=== PATIENT | female | born 1985 | race Caucasian/White ===

== ENCOUNTER → 2018-10-20 | Day surgery (SDC) | payer BC ==
[2018-10-18 10:34] LABS: BASOPHILS % 0.5 % (0.0-1.0); EOSINOPHILS % 0.7 % (0.0-6.0); HEMATOCRIT 37.4 % (34.2-44.1); HEMOGLOBIN 12.6 g/dL (12.0-16.0); LYMPHOCYTES # (AUTO) 1.3 (1.0-3.2); LYMPHOCYTES % 31.2 % (18.0-39.1); MEAN CORPUSCULAR HEMOGLOBIN 29.5 pg (28-32); MEAN CORPUSCULAR HGB CONC 33.7 g/dL (31-35); MEAN CORPUSCULAR VOLUME 87.6 fL (81-99); MONOCYTES # (AUTO) 0.2 (0.2-0.8); MONOCYTES % 4.7 % (4.4-11.3); NEUTROPHILS # (AUTO) 2.5 (2.1-6.9); NEUTROPHILS % 62.7 % (38.7-80.0); PLATELET COUNT 247 x10e3/uL (140-360); RED BLOOD COUNT 4.27 x10e6/uL (3.6-5.1); RED CELL DISTRIBUTION WIDTH 13.2 % (11.7-14.4)
[~2018-10-20] MED LIST: ACETAMINOPHEN 1000 MG/100 ML 100 ML IV ONE; CEFAZOLIN SOD 1 GM VIAL ONE; DEXAMETHASONE SOD PHOS INJ 4 MG/ML VIAL ONE; FENTANYL CITRATE/PF 100MCG/2 ML INJ ONE; LIDOCAINE HCL 2% LOCAL INJ 5 ML SDV VIAL INJ ONE; METHYLERGONOVINE MALEATE 0.2 MG/ML AMP ONE; MIDAZOLAM HCL 2 MG/2 ML VIAL ONE; ONDANSETRON HCL INJ 2 MG/ML VIAL ONE; PROPOFOL IV EMULSION 10 MG/ML 20 ML VIAL ONE; SEVOFLURANE INHAL SOLN 250 ML PEN BTL ONE; SILVER NITRATE SWABS ONE
--- OUTSIDE RECORDS SUMMARY | 2018-10-20 11:17 | XMS REPORT | Continuity of Care Document ---
Author Author [facility] Address Unknown Phone Unavailable Problems Problem Status Onset Date Classification Date Reported Comments Source Microscopic hematuria 07/16/2018 Diagnosis 07/16/2018 [facility] Bilirubin in urine - finding 07/16/2018 Diagnosis 07/16/2018 [facility] Proteinuria 07/16/2018 Diagnosis 07/16/2018 [facility] Body mass index 30+ - obesity 07/16/2018 Diagnosis 07/16/2018 [facility] Cystitis 07/16/2018 Diagnosis 07/16/2018 [facility] Influenza-like symptoms 01/28/2018 Diagnosis 01/28/2018 [facility] Pharyngitis 01/28/2018 Diagnosis 01/28/2018 [facility] Urinary tract infectious disease 04/10/2017 Diagnosis 04/10/2017 [facility] Medications Medication Details Route Status Patient Instructions Ordering Provider Order Date Source NITROFURANTOIN, MACROCRYSTALS 25 MG / Nitrofurantoin, Monohydrate 75 MG Oral Capsule [Macrobid] Macrobid 100 mg capsule Take 1 capsule every 12 hours by oral route for 7 days. Active [facility] benzonatate 200 MG Oral Capsule benzonatate 200 mg capsule Take 1 capsule 3 times a day by oral route. Active [facility] Fluticasone propionate 0.05 MG/ACTUAT Metered Dose Nasal [place] fluticasone 50 mcg/actuation nasal spray,suspension [place] 1 spray every day by intranasal route. Active [facility] Lidocaine Hydrochloride 20 MG/ML Mucous Membrane Topical Solution Lidocaine Viscous 2 % mucosal solution Take 15 mL every 3 hours by oral route. Active [facility] Fluconazole 150 MG Oral Tablet fluconazole 150 mg tablet Active [facility] Metronidazole 250 MG Oral Tablet metronidazole 250 mg tablet Active [facility] Metronidazole 500 MG Oral Tablet metronidazole 500 mg tablet Active [facility] terconazole 4 MG/ML Vaginal Cream terconazole 0.4 % vaginal cream Active [facility] Allergies, Adverse Reactions, Alerts Substance Category Reaction Severity Reaction type Status Date Reported Comments Source Ibuprofen Hives Moderate to Severe Allergy to substance 04/10/2017 [facility] Immunizations Immunization Date Given Site Status Last Updated Comments Source Results Order Name Results Value Reference Range Date Interpretation Comments Source Influenza A negative 01/28/2018 [facility] Influenza B negative 01/28/2018 [facility] RESULT negative 01/28/2018 [facility] Urinalysis macro (dipstick) panel - Urine COLOR : Yellow 04/10/2017 [facility] Urinalysis macro (dipstick) panel - Urine CLARITY : Cloudy 04/10/2017 [facility] Urinalysis macro (dipstick) panel - Urine LEUKOCYTES : Trace 04/10/2017 [facility] Urinalysis macro (dipstick) panel - Urine NITRITES : Positive 04/10/2017 [facility] Urinalysis macro (dipstick) panel - Urine UROBILINOGEN : Normal 04/10/2017 [facility] Urinalysis macro (dipstick) panel - Urine PROTEIN : Trace 04/10/2017 [facility] Urinalysis macro (dipstick) panel - Urine pH : 7.0 04/10/2017 [facility] Urinalysis macro (dipstick) panel - Urine BLOOD : Moderate 04/10/2017 [facility] Urinalysis macro (dipstick) panel - Urine SPECIFIC GRAVITY : 1.020 04/10/2017 [facility] Urinalysis macro (dipstick) panel - Urine KETONES : Trace 04/10/2017 [facility] Urinalysis macro (dipstick) panel - Urine BILIRUBIN : Small 04/10/2017 [facility] Urinalysis macro (dipstick) panel - Urine GLUCOSE Negative 04/10/2017 [facility] Vital Signs Vital Sign Value Date Comments Source Height 65 07/16/2018 [facility] Weight 198 07/16/2018 [facility] Diastolic (mm Hg) 64 01/28/2018 [facility] Height 65 01/28/2018 [facility] Systolic (mm Hg) 108 01/28/2018 [facility] Weight 189 01/28/2018 [facility] Diastolic (mm Hg) 76 04/10/2017 [facility] Height 65 04/10/2017 [facility] Systolic (mm Hg) 104 04/10/2017 [facility] Weight 180 04/10/2017 [facility] Encounters Location Location Details Encounter Type Encounter Number Reason For Visit Attending Provider ADM Date DC Date Status Source [place] - [facility] - [id number] Klein-C: [address] [place] [address], Ph. [id number] Cristian Perez 04/10/2017 [facility] [place] - [facility] - [id number] Collin Rushington, [employer]PER[employer]-C: [address] [place] [address], Ph. [id number] Collin Hanna 01/28/2018 [facility] [place] [facility] - [id number] ANIKET PulliamC: [address] [place] [address], Ph. [id number] Kenia Johnson 07/16/2018 [facility] Procedures Procedure Code Date Perfomer Comments Source
--- OUTSIDE RECORDS SUMMARY | 2018-10-20 11:18 | XMS REPORT ---
Author Author [facility] Address Unknown Phone Unavailable Care Team Providers Care Public Health Epidemiologist Name Role Phone Unavailable Unavailable Problems This patient has no known problems. Allergies, Adverse Reactions, Alerts This patient has no known allergies or adverse reactions. Medications This patient has no known medications.
--- OUTSIDE RECORDS SUMMARY | 2018-10-20 11:18 | XMS REPORT | Encounter Summary ---
Author Organization Unknown Address [address] [place] [address] Phone [phone] Reason for Visit Medical Complaint Instructions 1. Cystitis urinalysis, dipstick culture, urine Macrobid 100 mg capsule 2. Proteinuria 3. Bilirubin in urine - finding 4. Microscopic hematuria 5. Body mass index 30+ - obesity Discussion Note Take your antibiotics as directed. Do not stop taking them just because you feel better. You need to take the full course of antibiotics. Drink extra water and other fluids for the next day or two. This may help wash out the bacteria that are causing the infection. (If you have kidney, heart, or liver disease and have to limit fluids, talk with your doctor before you increase your fluid intake.) Avoid drinks that are carbonated or have caffeine. They can irritate the bladder. Urinate often. Try to empty your bladder each time. To relieve pain, take a hot bath or lay a heating pad set on low over your lower belly or genital area. Never go to sleep with a heating pad in place. will call with culture results and F/U with PCP Patient educational handouts: No information available. Plan of Care Reminders Provider Appointments None recorded. Lab Urinalysis, Dipstick 07/16/2018 [facility] Culture, Urine 07/16/2018 [facility] Referral None recorded. Procedures None recorded. Surgeries None recorded. Imaging None recorded. Medications Name Start Date Macrobid 100 mg capsule Take 1 capsule every 12 hours by oral route for 7 days. Medications Administered None recorded. Vitals Height Weight BMI Blood Pressure 5 ft 5 in 198 lbs 32.9 kg/m2 Lab Results None recorded. Allergies Code Code System Name Reaction Severity Status Onset 5640 RxNorm Ibuprofen Hives Moderate to Severe Active Problems No Known Problems Procedures None recorded. Vaccine List None recorded. Social History Smoking Status Never Smoker Past Encounters 07/16/2018 Cystitis; Proteinuria; Bilirubin in Urine - Finding; Microscopic Hematuria; Body Mass Index 30+ - Obesity Kenia Johnson PA-C: [address] [place] [address], Ph. History of Present Illness [id number] Reported By: Patient HPI: Location: abdomen. Quality: pain; has gone away. Severity: same. Duration: constant. Onset/Timing: sudden. Context: no known exposure to STD, no prior history of STDs, sexually active, heterosexual, history of urine cultures/antibiotic treatment, wipes anterior to posterior, voids after intercourse. Modifying factors OTC medication. Associated Symptoms: no fever/chills, no jaundice, no blood in the urine, no pain during urination, no vaginal discharge, no blisters on genitals, no rash on genitals, no muscle aches, no headache, flank pain, urgency, feeling of incomplete emptying of bladder Review of Systems Basic Reported By: Patient Constitutional: Constitutional: no fever Eyes: Eyes: no eye complaints Hcsn-Bvet-Jbpov-Throat: Ears: no ear complaints. Nose: no nose/sinus problems. Mouth/Throat: no sore throat, no bleeding gums, no mouth complaints, no teeth problems Cardiovascular: Cardiovascular: no chest pain, no shortness of breath, no known heart murmur Respiratory: Respiratory: no cough, no wheezing, no shortness of breath Gastrointestinal: Gastrointestinal: no abdominal pain, no vomiting / diarrhea Genitourinary: Genitourinary: no discharge, dysuria, urinary urgency; malodorous urine Musculoskeletal: Musculoskeletal: no muscle aches, no muscle weakness, no arthralgias/joint pain, no back pain Skin: Skin: no abnormal / changing mole, no jaundice, no rashes Neurologic: Neurologic: no loss of consciousness, no weakness, no numbness, no seizures, no dizziness, no headaches Physical Exam Adult Female Complete Reported By: Patient Constitutional: General Appearance: healthy-appearing, well-nourished, well-developed, overweight. Level of Distress: NAD. Ambulation: ambulating normally Psychiatric: Mental Status: active and alert. Orientation: to time, to place, to person Lungs: Respiratory effort: no dyspnea. Auscultation: breath sounds normal Cardiovascular: Heart Auscultation: RRR, no murmurs Abdomen: Bowel Sounds: normal. Inspection and Palpation: soft, non-distended, no guarding, no rebound tenderness, no masses, no CVA tenderness, LLQ tenderness, RLQ tenderness, suprapubic tenderness. Liver: non-tender, no hepatomegaly. Spleen: non-tender, no splenomegaly. Hernia: none palpable
--- OUTSIDE RECORDS SUMMARY | 2018-10-20 11:18 | XMS REPORT | Encounter Summary ---
Author Organization Unknown Address [address] [place] [address] Phone [phone] Reason for Visit Medical Complaint Instructions 1. Pharyngitis rapid strep group A, throat Lidocaine Viscous 2 % mucosal solution sore throat: care instructions 2. Influenza-like symptoms rapid flu (A+B) fluticasone 50 mcg/actuation nasal spray,suspension benzonatate 200 mg capsule 3. Body mass index 30+ - obesity walking for exercise: care instructions increase exercise eating healthy foods: care instructions Discussion Note Pt is in no apparent acute distress; Verbalizes understanding of and agreement with all instructions with no questions at this time. Plan of Care Patient Instructions Take all medications as directed. Follow up with your PCP as needed. Seek additional medical care with new or worsening symptoms, or if symptoms do not resolve in 3-4 days. Thank you for allowing me to participate in your healthcare! Reminders Provider Appointments None recorded. Lab Rapid Strep Group a, Throat 01/28/2018 [facility] Rapid Flu (A+B) 01/28/2018 [facility] Referral None recorded. Procedures None recorded. Surgeries None recorded. Imaging None recorded. Medications Name Start Date benzonatate 200 mg capsule Take 1 capsule 3 times a day by oral route. fluticasone 50 mcg/actuation nasal spray,suspension [place] 1 spray every day by intranasal route. Lidocaine Viscous 2 % mucosal solution Take 15 mL every 3 hours by oral route. Medications Administered None recorded. Vitals Height Weight BMI Blood Pressure 5 ft 5 in 189 lbs 31.5 kg/m2 108/64 mm[Hg] Lab Results Date Name Specimen Result Interpretation Description Value Range Status Address Rapid Flu (A+B) Influenza a negative [facility]: [address] [place] [address] Influenza B negative [facility]: [address] [place] [address] Rapid Strep Group a, Throat Result negative [facility]: [address] [place] [address] Allergies Code Code System Name Reaction Severity Status Onset 5640 RxNorm Ibuprofen Hives Moderate to Severe Active Problems No Known Problems Procedures None recorded. Vaccine List None recorded. Social History Smoking Status Never Smoker Past Encounters 01/28/2018 Pharyngitis; Influenza-like Symptoms; Body Mass Index 30+ - Obesity Collin Hanna, [facility]-C: [address] [place] [address], Ph. History of Present Illness Throat-Oral Complaint Reported By: Patient HPI: Location: throat. Quality: sore throat, congested, dry or hacking cough. Severity: mild, moderate, pain level 3/10. Duration: 3 days. Onset/Timing: sudden. Context: no sick contacts, no foreign travel, non-smoker. Associated Symptoms: no fever, no sputum production, no shortness of breath, no wheezing, no change in number of pillows needed to sleep at night, no sweats, no significant weight gain, no significant weight loss, no morning cough, no vomiting, no diarrhea, no rash, no nausea, headache, body aches, sore throat Ear Complaint Reported By: Patient HPI: Location: right, bilateral. Quality: dull. Severity: intermittent. Duration: constant. Onset/Timing: worse, still present, gradual. Context: no sick contacts, no recent swimming/water in ear, no exposure to second hand smoke, no head trauma, not grinding teeth, no recent air travel. Modifying factors: does not hurt to lie on, or pull on ear, does not hurt to chew. Associated Symptoms: no discharge from the ears, no ringing in the ears, no fever, no chills, no dizziness, no vertigo, no headache, no muscle aches, nose/sinus problems, popping noise in the ears Review of Systems:ROS as noted in the HPI Review of Systems Basic Reported By: Patient Physical Exam Adult Basic, Adult Female Complete Reported By: Patient Constitutional: General Appearance: healthy-appearing, well-nourished, well-developed. Level of Distress: NAD. Ambulation: ambulating normally Psychiatric: Mental Status: active and alert. Orientation: to time, to place, to person Eyes: Lids and Conjunctivae: non-injected, no discharge, no pallor. Pupils: PERRLA. Corneas: grossly intact. EOM: EOMI. Lens: clear. Sclerae: non-icteric Mpr-Wapw-Wvwiu-Throat: Ears: no lesions on external ear, no outer ear tenderness, EAC ceruminous. Hearing: no hearing loss. Nose: no lesions on external nose, nares patent, no septal deviation, nasal passages clear, no sinus tenderness, nasal discharge--rhinorrhea, post nasal drip; edema. Oropharynx: moist mucous membranes, no exudates, erythema, tonsils enlarged 1+; mild irritation, copious PND Neck: Neck: supple, trachea midline, no masses, FROM. Lymph Nodes: no supraclavicular LAD, anterior cervical LAD Lungs: Respiratory effort: no dyspnea, no tachypnea, no use of accessory muscles, no intercostal retractions. Auscultation: breath sounds normal Cardiovascular: Heart Auscultation: RRR, no murmurs Neurologic: Gait and Station: normal gait, normal station Skin: Inspection and palpation: no rash, no lesions
--- OUTSIDE RECORDS SUMMARY | 2018-10-20 11:18 | XMS REPORT | Encounter Summary ---
Author Organization Unknown Address [address] [place] [address] Phone [phone] Reason for Visit Medical Complaint Instructions 1. Urinary tract infectious disease urinary tract infection in women: care instructions Macrobid 100 mg capsule urinalysis, dipstick culture, urine Discussion Note: None recorded. Plan of Care Patient Instructions take antibiotics as prescribed. increase fluids. otc tylenol or ibuprofen prn for pain. will contact patient when results of culture are finalized. follow up pcp Reminders Provider Appointments None recorded. Lab Urinalysis, Dipstick 04/10/2017 [facility] Culture, Urine 04/10/2017 [facility] Referral None recorded. Procedures None recorded. Surgeries None recorded. Imaging None recorded. Medications Name Start Date fluconazole 150 mg tablet Macrobid 100 mg capsule Take 1 capsule every 12 hours by oral route for 5 days. metronidazole 250 mg tablet metronidazole 500 mg tablet terconazole 0.4 % vaginal cream Medications Administered None recorded. Vitals Height Weight BMI Blood Pressure 5 ft 5 in 180 lbs 30 kg/m2 104/76 mm[Hg] Lab Results Date Name Specimen Result Interpretation Description Value Range Status Address Urinalysis, Dipstick Color : Yellow [facility]: [address] [place] [address] Clarity : Cloudy [facility]: [address] [place] [address] Leukocytes : Trace [facility]: [address] [place] [address] Nitrites : Positive [facility]: [address] [place] [address] Urobilinogen : Normal [facility]: [address] [place] [address] Protein : Trace [facility]: [address] [place] [address] Ph : 7.0 [facility]: [address] [place] [address] Blood : Moderate [facility]: [address] [place] [address] Specific [place] : 1.020 [facility]: [address] [place] [address] Ketones : Trace [facility]: [address] [place] [address] Bilirubin : Small [facility]: [address] [place] [address] Glucose Negative [facility]: [address] [place] [address] Allergies Code Code System Name Reaction Severity Onset 5640 RxNorm Ibuprofen Hives Moderate to Severe Problems None recorded. Procedures None recorded. Vaccine List None recorded. Social History Smoking Status Never Smoker Past Encounters 04/10/2017 Urinary Tract Infectious Disease Cristian Perez, CREAMERY WORKER-C: [address] [facility], [place] [address], Ph. History of Present Illness [id number] Reported By: Patient HPI: Location: urethra. Quality: pressure, burning. Severity: mild. Duration: constant. Onset/Timing: gradual. Context: history of urine cultures/antibiotic treatment, wipes anterior to posterior, voids after intercourse. Modifying factors OTC medication. Associated Symptoms: no fever/chills, no flank pain, no jaundice, no blood in the urine, no pain during urination, no vaginal discharge, no urgency, no blisters on genitals, no rash on genitals, no muscle aches, no headache, burning sensation during urination, urinary frequency Review of Systems:ROS as noted in the HPI Review of Systems Basic Reported By: Patient Physical Exam Adult Basic, Adult Female Complete Reported By: Patient Constitutional: General Appearance: healthy-appearing, well-nourished, well-developed. Level of Distress: NAD. Ambulation: ambulating normally Psychiatric: Mental Status: active and alert Lungs: Respiratory effort: no dyspnea, no tachypnea, no use of accessory muscles, no intercostal retractions. Auscultation: breath sounds normal Cardiovascular: Heart Auscultation: RRR, no murmurs Abdomen: Inspection and Palpation: soft, non-distended, no tenderness, no guarding, no rebound tenderness, no masses, no CVA tenderness
--- NOTE | 2018-10-20 13:44 | Diagnostic Imaging Report ---
Exam: KUB-single view radiograph, lower abdomen/pelvis Clinical History: Evaluate IUD position. Comparison: None. Findings: IUD is visualized overlying the midline pelvis. The device appears intact. Nonspecific bowel gas pattern. No acute osseous abnormality. Impression: IUD overlies the midline pelvis. Signed by: Dr. Omero Almaraz MD on 10/20/2018 1:41 PM
[2018-10-20 15:30] VITALS: BP 111/74
--- NOTE | 2018-10-20 15:53 | Operative Report ---
DATE OF PROCEDURE: October 20, 2018 PREOPERATIVE DIAGNOSIS: Missed intrauterine device. POSTOPERATIVE DIAGNOSIS: Missed intrauterine device. PROCEDURES 1. Hysteroscopy. 2. Dilation and curettage. COMPLICATIONS: None. ESTIMATED BLOOD LOSS: Minimal. The patient was taken to the OR and general anesthesia was administered. The patient was prepped and draped in a sterile fashion. Placed in the dorsal lithotomy position. Examination under anesthesia revealed the uterus anteverted and mobile. No adnexal masses. Weighted speculum was placed inside the vagina. Cervix was grasped with a single-toothed tenaculum. Uterine sound was passed, and cavity measured about 8 cm. Following this, Chyna dilators were used to dilate the cervix. Extreme difficulty was noted in dilating the cervix due to the internal os stenosis. Following this, Chyna dilator was used up to size 8. Hysteroscope was introduced into the uterine cavity. No sign of the IUD was noted. X-ray was ordered and it showed the IUD is in the pelvis, but was not sure whether it is inside the uterus or outside. Scraping of the uterine cavity with the curette was performed and sent to pathology. Hysteroscope was reintroduced and showed no evidence of boiler erector IUD. At that stage, after several attempts the procedure was abandoned. Decision was made to carry on with followup with her in the office to explain the different options and see how she would like to proceed from there on. At the end of the procedure, the lap, instrument and needle counts were correct times 2. Job#: [id number] BRYANNA
== END | disposition home or self-care (01) ==
LOC: OR 11:15
PROVIDERS: ATTEND Obstetrics & Gynecology
DX: T83.32XA Displacement of intrauterine contraceptive device, initial encounter (principal); Y83.8 Other surgical procedures as the cause of abnormal reaction of the patient, or of later complication, without mention of misadventure at the time of the procedure; Z01.812 Encounter for preprocedural laboratory examination; Z88.8 Allergy status to other drugs, medicaments and biological substances
CPT/HCPCS: 36415; 58558; 74018; 81025; 84702; 85025; J0131; J0690; J1100; J2001; J2250; J2405; J2704; J2210

== ENCOUNTER → 2018-11-24 | Day surgery (SDC) | payer BC ==
[2018-11-23 09:18] LABS: BASOPHILS % 0.3 % (0.0-1.0); EOSINOPHILS # (AUTO) 0.1 (0.0-0.4); EOSINOPHILS % 0.8 % (0.0-6.0); HEMATOCRIT 38.9 % (34.2-44.1); HEMOGLOBIN 13.2 g/dL (12.0-16.0); LYMPHOCYTES % 16.3 % (18.0-39.1); MEAN CORPUSCULAR HEMOGLOBIN 29.3 pg (28-32); MEAN CORPUSCULAR HGB CONC 33.9 g/dL (31-35); MEAN CORPUSCULAR VOLUME 86.3 fL (81-99); MONOCYTES # (AUTO) 0.3 (0.2-0.8); MONOCYTES % 5.1 % (4.4-11.3); NEUTROPHILS # (AUTO) 4.7 (2.1-6.9); PLATELET COUNT 218 x10e3/uL (140-360); RED BLOOD COUNT 4.51 x10e6/uL (3.6-5.1); RED CELL DISTRIBUTION WIDTH 13.5 % (11.7-14.4)
[~2018-11-24] MED LIST changes: -ACETAMINOPHEN 1000 MG/100 ML 100 ML IV ONE; -CEFAZOLIN SOD 1 GM VIAL ONE; -METHYLERGONOVINE MALEATE 0.2 MG/ML AMP ONE; +MISOPROSTOL100 MCG VG; -ONDANSETRON HCL INJ 2 MG/ML VIAL ONE; +ONDANSETRON HCL INJ 2MG/ML 2ML 2 MG/ML VIAL ONE; -SILVER NITRATE SWABS ONE; +[UNRECOGNIZED DRUG - OTHER] PO; +robitussin PO
--- NOTE | 2018-11-24 13:54 | Operative Report ---
DATE OF PROCEDURE: PREOPERATIVE DIAGNOSIS: Missed intrauterine device. POSTOPERATIVE DIAGNOSIS: Missed intrauterine device. PROCEDURE: Hysteroscopy, removal of intrauterine device. COMPLICATIONS: None. ESTIMATED BLOOD LOSS: Minimal. DETAILS: Patient was taken to the OR. General anesthesia was achieved. She was prepped and draped in the normal sterile fashion. Placed in the dorsal lithotomy position. Ultrasound was applied on the patient's abdomen by the spooling supervisor and with weighted speculum inside the vagina, the cervix was grasped with Allis clamps. Cervical dilators were passed through the cervix under visualization by ultrasound. To avoid forced passage, the cervix was dilated to [place] 8. Hysteroscope was introduced and showed normal cavity. The IUD was in the lower part of the cavity of the uterus. Hysteroscopic grasper was passed through the hysteroscope and, under direct visualization, the IUD was grasped and removed. Patient tolerated the procedure well. Laps, instruments and needle count was correct x2 at the end of the procedure. Job#: [id number] WHIT
[2018-11-24 14:25] VITALS: BP 124/75
== END | disposition home or self-care (01) ==
LOC: OR 08:02
PROVIDERS: ATTEND Obstetrics & Gynecology
DX: T83.32XA Displacement of intrauterine contraceptive device, initial encounter (principal); Y83.1 Surgical operation with implant of artificial internal device as the cause of abnormal reaction of the patient, or of later complication, without mention of misadventure at the time of the procedure; Z88.8 Allergy status to other drugs, medicaments and biological substances; Z01.812 Encounter for preprocedural laboratory examination
CPT/HCPCS: 36415; 58562; 76857; 84702; 85025; 88302; J1100; J2001; J2250; J2405; J2704; 76998